=== PATIENT | male | born 1945 | race Caucasian/White ===

== ENCOUNTER 2020-07-26 06:20 | Outpatient (REF) | payer MEDICARE, SELFPAY ==
[2020-07-26 11:10] LABS: MANUAL DIFF FLAG NO
[2020-07-26 11:19] LABS: Basophils Absolute Auto 0.1 X10*3/uL (0.0-0.2); Basophils Percent Auto 0.8 % (0-2); Eosinophils Absolute Auto 0.4 X10*3/uL (0.0-0.4); Eosinophils Percent Auto 5.3 % (0-4); Hematocrit 44.5 % (42-52); Hemoglobin 14.5 g/dl (14.0-18.0); Imm Gran Abs Auto 0.02 X10*3/uL (0.00-0.03); Imm Gran Pct Auto 0.3 % (0.0-0.4); Lymphocytes Absolute Auto 2.2 X10*3/uL (1.2-4.9); Lymphocytes Percent Auto 28.6 % (20-40); Mean Corpuscular HGB Conc 32.6 g/dl (31.0-36.0); Mean Corpuscular Hemoglobin 30.6 pg (27.0-33.0); Mean Corpuscular Volume 93.9 fL (80-98); Mean Platelet Volume 10.7 fL (9.4-12.4); Monocytes Absolute Auto 0.7 X10*3/uL (0.1-1.2); Monocytes Percent Auto 8.6 % (2-11); Neutrophils Absolute Auto 4.3 X10*3/uL (2.0-8.3); Neutrophils Percent Auto 56.4 % (45-73); Platelet Count 292 X10*3/uL (160-400); Red Blood Count 4.74 X10*6/uL (4.60-5.80); White Blood Count 7.5 X10*3/uL (4.8-10.8)
[2020-07-26 12:11] LABS: Alanine Aminotransferase 27 U/L (0-40); Albumin Level 4.4 g/dL (3.5-5.0); Alkaline Phosphatase 55 U/L (39-117); Anion Gap 15 (12-20); Aspartate Amino Transferase 17 U/L (5-37); Bilirubin Total 0.8 mg/dL (0.0-1.0); Blood Urea Nitrogen 17 mg/dL (9-16); Calcium 9.3 mg/dL (8.4-10.2); Carbon Dioxide 26 mmol/L (22-29); Chloride 104 mmol/L (96-108); Cholesterol 165 mg/dL; Estimated Glomerular Filt Rate > 60; Glucose Fasting 138 mg/dL (60-99); HDL Cholesterol 41 mg/dL; LDL Cholesterol Calculated 105 mg/dl; Potassium 5.1 mmol/L (3.3-5.1); Sodium 140 mmol/L (135-145); Total Protein 7.3 g/dL (6.5-8.0); Triglycerides 99 mg/dL
[2020-07-26 12:50] LABS: Prostate Specific Antigen 0.21 ng/mL (<0.05-4.0)
== END 2020-07-26 06:21 | disposition home or self-care (01) ==
LOC: HO.HMGCLDS 06:20
PROVIDERS: PCP Internal Medicine; Visit Provider Internal Medicine
DX: Z00.00 Encounter for general adult medical examination without abnormal findings (principal); R53.83 Other fatigue; E78.00 Pure hypercholesterolemia, unspecified; Z12.5 Encounter for screening for malignant neoplasm of prostate
CPT/HCPCS: 36415; 80053; 80061; 84153; 85025

== ENCOUNTER → 2020-09-12 14:44 | Outpatient (REF) | payer MEDICARE, SELFPAY ==
--- NOTE | 2020-09-12 15:00 | CA_ITS ---
Transthoracic Echocardiogram Patient (Last, First, Middle): JuanitaJustino chang Royce Gender: Male Date of : 1945 Age: 74 Procedure Date: 09/12/2020 Procedure Type: Transthoracic Echocardiogram Location: OP Height: 182.88 cm Weight: 124.74 kg BSA: 2.44 m2 Heart Rate: bpm BP: 144 / 82 mmHg Transplanter Orchid: ERNIE Referring MD: Justino Deal MD Symptoms: NEW [place]UR[place] OVER AORTA Study Quality: Fair ECG Rhythm: Sinus Conclusions: - The left ventricular systolic function is normal. The visually estimated ejection fraction is between 60-65%. - No obvious valvular pathology seen on this study. Findings Left Ventricle Normal left ventricular cavity size. There is mildly increased left ventricular wall thickness. The left ventricular systolic function is normal. The visually estimated ejection fraction is between 60-65%. There is no evidence of regional wall motion abnormalities. Evidence suggests grade I (mild) diastolic dysfunction. Right Ventricle Normal right ventricular cavity size and systolic function. Atria The left atrium is mildly dilated. The right atrium is normal in size. Aortic Valve There is a normal trileaflet aortic valve. There is mild calcification of the aortic valve. There is no aortic valve stenosis. There is trace (trivial) aortic valve regurgitation. Mitral Valve The mitral valve appears normal. There is trace mitral valve regurgitation. There is no mitral valve stenosis. Pulmonic Valve The pulmonic valve was not well visualized. Tricuspid Valve There is trace tricuspid valve regurgitation. The pulmonary artery systolic pressure is normal. Great Vessels The aortic annulus, sinuses of valsalva, and asc aorta are normal in size. Venous The inferior vena cava is normal in size and collapses greater than 50% with inspiration. Pericardium/Pleural There is no evidence of pericardial effusion. Prior Study Comparison No significant change compared to prior study dated: 05/23/2004. Recommendations, Care & Conclusions No obvious valvular pathology seen on this study. Measurements 2D Linear Measurements IVSd: 1.17 0.6-0.9/0.6-1.0 cm LVIDd: 4.63 3.9-5.3/4.2-5.9 cm LVIDd Index: 1.90 2.4-3.2/2.2-3.1 cm/m2 LVIDs: 3.30 2.0-3.6 cm LVPWd: 1.15 0.7-1.1 cm Ao Root: 3.60 2.1-3.5 cm LA Diam: 3.70 2.7-3.8/3.0-4.0 cm LAIDs Index: 1.52 1.5-2.3 cm/m2 LV Mass: 245.91 67-162/88-224 g LV Mass Index: 100.78 43-95/49-115 g/m2 LVOT Diam: 2.10 3.0+(-)1.3 cm 2D Systolic Function EF 4C: 62.70 >55% EF 2C: 48.60 >55% EF BiP: 57.50 >55% Mitral Valve MV Pk E: 0.92 MV PK A: 0.98 MV Decel Time: 264.00 E/A: 0.90 E'Lateral: 6.67 E'Medial: 6.00 E/E' Med: 15.40 E/E' Lat: 13.80 PHT: 77.00 MVA PHT: 2.86 Decel Storey: 3.49 Aortic Valve AoV Pk Jamie: 2.02 AoV Mn Jamie: 1.39 AoV VTI: 0.46 AoV Pk Grad: 16.00 Aov Mn Grad: 9.00 MEG Cont.VTI: 2.07 LVOT LVOT Pk Jamie: 1.15 LVOT Mn Jamie: 0.85 LVOT VTI: 0.27 LVOT Pk Grad: 5.00 LVOT Mn Grad: 3.00 LVOT Diam: 2.10 LVOT Area: 3.46 Diastolic Function MV Pk E: 0.92 MV Pk A: 0.98 E/A: 0.90 E'Medial: 6.00 E/E' Med: 15.40 E' Laterial: 6.67 E/E' Lat: 13.80 Tricuspid Valve TR Pk Jamie: 1.24 TR Pk Grad: 6.00 Great Vessels Aorta Ao Root-2D: 3.60 2.0-3.7 cm Ao Asc: 3.70 2.1-3.4 cm Ao Arch: 3.10 Updated in Other Vendor System with Status of Final Ted Westfall MD electronically signed on 09/14/2020 11:54:34 AM with status of Final
== END ==
LOC: HO.CARD 14:44
PROVIDERS: PCP Internal Medicine; Visit Provider Internal Medicine
DX: I35.8 Other nonrheumatic aortic valve disorders (principal)
CPT/HCPCS: 93306

== ENCOUNTER 2021-08-13 15:17 | Outpatient (REF) | payer MEDICARE, SELFPAY ==
--- NOTE | ~2021-08-13 | XR_ITS ---
EXAMINATION: XR CHEST CLINICAL INFORMATION: Cough. Rule out pneumonia. COMPARISON: Previous chest x-ray August 2019 TECHNIQUE: 2 views of the chest were obtained. FINDINGS: The cardiac and mediastinal contours are stable. The lungs are clear. There is no pleural effusion or pneumothorax. There are degenerative changes of the spine. XR/XR chest 2V IMPRESSION: No evidence for acute disease in the chest.
== END 2021-08-13 15:18 | disposition home or self-care (01) ==
LOC: HO.HMGCX 15:17
PROVIDERS: PCP Internal Medicine; Visit Provider Internal Medicine
DX: R05.9 Cough, unspecified (principal)
CPT/HCPCS: 71046

== ENCOUNTER 2021-09-02 14:52 | Outpatient (REF) | payer MEDICARE, SELFPAY ==
--- NOTE | 2021-09-02 16:22 | MHC.AU.ANR ---
Adult Audiological Evaluation Date of Visit: 09/02/21 Reason for Appointment: Justino was seen for a hearing evaluation due to concerns of gradually decreasing hearing abilities. He reports receiving a hearing test in 1990, which revealed a possible hearing loss on the left side. Justino reports recently asking for more repetitions and needing the volume up louder than his spouse would like. Justino purchased an over the counter amplifier for his left ear about a year ago. He states the amplifier helps, but also has feedback when he turns his head and if he increases the volume. 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 Justino reports having to use a telephone at full volume on the left side while working around machines at the printing facility. Does patient feel they have a hearing loss?: Yes If Yes, Which Ear?: Left Ear When Was Hearing Difficulty First Noticed?: 1990 Has hearing been tested previously?: Yes Previous Hearing Test Results: Evaluation at work- 1990- diminished hearing thresholds in the left ear Hearing Handicap Inventory: HHIE SCORE: 22 Based on HHIE score, patient has: Mild to moderate perceived hearing handicap Ear History: Family History of Hearing Loss?: Yes: Brother from service History of occupational noise exposure?: Yes: Printing machines for 5 years History: Yes: [employer]-4 years Medical History: Medical History: High Blood Pressure, Hernia-2010 Allergies: NKA Medication List: Atorvastatin, metoprolol Otoscopy: Right Ear: Unremarkable Left Ear: Unremarkable Tympanometry: Tympanometry performed due to: To assess integrity of the middle ear system Right Ear: Normal Middle Ear System (Type A) Left Ear: Normal Middle Ear System (Type A) Hearing Evaluation: Transducer(s) Used: Insert Earphones, Bone Conduction Method: Conventional Audiometry Stimuli Used: Pure Tones Right Ear: Description of Hearing: Normal hearing thresholds from 250-500 Hz, sloping to a mild sensorineural hearing loss through 8000 Hz. Left Ear: Description of Hearing: Normal hearing threshold at 250 Hz, sloping to a severe sensorineural hearing loss through 4000 Hz, rising to a moderately severe hearing loss through 8000 Hz. A 20-40 dB asymmetry is noted from 500-8000 Hz, left ear worse. Speech Recognition Threshold (SRT): Method Used: Monitored Live Voice Stimuli Used: Spondee Words Right Ear: 30 dB HL Left Ear: 50 dB HL Word Discrimination: Method: Recorded Lists Word Lists Used: NU-6 Right Ear: 100% at 75 dB HL Left Ear: 88% at 90 dB HL Interpretation of Results: Asymmetrical sensorineural hearing loss, left ear worse. Normal middle-ear mobility bilaterally. Recommendations: Recommended Justino to follow up with ENT due to the asymmetrical nature of his hearing loss. Based on the degree and patient complaints, Justino would be a candidate for a hearing aid use, pending medical clearance. Counseled on calling his insurance to determine if he has any hearing aid coverage. He was welcomed to return to further discuss hearing aids if he choses to pursue hearing aids through our clinic. Justino should return in one year to monitor the status of his hearing loss. Diagnosis: Primary Diagnosis: H90.3 Bilateral Sensorineural Hearing Loss Services Performed: Services Performed: Comprehensive Audiological Evaluation (CPT 13024) Tympanometry (CPT 93410) Signature: Student/Clinical Fellow: Yes: Joann Shore B.A., Ronnie Senior Specialist I have reviewed/agreed with student/fellow documentation: Yes Provider: Ronnie Jones, [facility]
== END 2021-09-02 14:53 | disposition home or self-care (01) ==
LOC: HO.SH 14:52
PROVIDERS: Visit Provider Internal Medicine
DX: Z01.118 Encounter for examination of ears and hearing with other abnormal findings (principal); H90.3 Sensorineural hearing loss, bilateral
CPT/HCPCS: 92557; 92567

== ENCOUNTER 2021-11-11 06:01 | Outpatient (REF) | payer MEDICARE, SELFPAY ==
[2021-11-11 11:50] LABS: Cholesterol 143 mg/dL; HDL Cholesterol 33 mg/dL; LDL Cholesterol Calculated 87 mg/dl; Triglycerides 115 mg/dL
== END 2021-11-11 06:02 | disposition home or self-care (01) ==
LOC: HO.HMGCLDS 06:01
PROVIDERS: PCP Internal Medicine; Visit Provider Internal Medicine
DX: R53.83 Other fatigue (principal); E78.5 Hyperlipidemia, unspecified
CPT/HCPCS: 36415; 80061

== ENCOUNTER 2022-06-05 09:51 | Outpatient (REF) | payer MEDICARE, SELFPAY ==
--- NOTE | ~2022-06-05 | XR_ITS ---
EXAMINATION: XR SHOULDER, RIGHT CLINICAL INFORMATION: Pain. COMPARISON: None TECHNIQUE: AP external rotation, Grashey, scapular Y, and axillary views of the right shoulder. FINDINGS: Bony alignment and mineralization are normal. The glenohumeral joint is intact and shows mild peripheral osteophyte formation. The acromioclavicular and coracoclavicular intervals are normal. 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 There is dense calcific tendinitis of the right rotator cuff insertion. No foreign body is seen. There is no right pneumothorax. XR/XR shoulder RT min 2V IMPRESSION: 1. 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 2. There is dense calcific tendinitis of the right rotator cuff insertion.
== END 2022-06-05 09:52 | disposition home or self-care (01) ==
LOC: HO.HMGCX 09:51
PROVIDERS: PCP Internal Medicine; Visit Provider Internal Medicine
DX: M25.511 Pain in right shoulder (principal)
CPT/HCPCS: 73030

== ENCOUNTER 2022-08-29 07:21 | Outpatient (REF) | payer MEDICARE, SELFPAY ==
[2022-08-29 11:05] LABS: MANUAL DIFF FLAG NO
[2022-08-29 11:12] LABS: Basophils Percent Auto 0.6 % (0-2); Eosinophils Absolute Auto 0.2 X10*3/uL (0.0-0.4); Eosinophils Percent Auto 3.3 % (0-4); Hematocrit 41.2 % (42.0-52.0); Hemoglobin 13.7 g/dl (14.0-18.0); Imm Gran Abs Auto 0.03 X10*3/uL (0.00-0.03); Imm Gran Pct Auto 0.4 % (0.0-0.4); Lymphocytes Absolute Auto 2.6 X10*3/uL (1.2-4.9); Lymphocytes Percent Auto 35.7 % (20-40); Mean Corpuscular HGB Conc 33.3 g/dl (31.0-36.0); Mean Corpuscular Hemoglobin 31.2 pg (27.0-33.0); Mean Corpuscular Volume 93.8 fL (80.0-98.0); Mean Platelet Volume 10.7 fL (9.4-12.4); Monocytes Absolute Auto 0.6 X10*3/uL (0.1-1.2); Monocytes Percent Auto 8.3 % (2-11); Neutrophils Absolute Auto 3.8 x10*3/uL (2.0-8.3); Neutrophils Percent Auto 51.7 % (45-73); Platelet Count 298 X10*3/uL (160-400); Red Blood Count 4.39 X10*6/uL (4.60-5.80); Red Cell Distribution Width 12.8 % (11.0-16.0); White Blood Count 7.3 X10*3/uL (4.8-10.8)
[2022-08-29 11:36] LABS: Alanine Aminotransferase 27 U/L (0-40); Albumin Level 4.1 g/dL (3.5-5.0); Alkaline Phosphatase 55 U/L (39-117); Anion Gap 13 (12-20); Aspartate Amino Transferase 18 U/L (5-37); Bilirubin Direct 0.3 mg/dL (0.0-0.5); Bilirubin Total 0.9 mg/dL (0.0-1.0); Blood Urea Nitrogen 14 mg/dL (9-16); Carbon Dioxide 27 mmol/L (22-29); Chloride 104 mmol/L (96-108); Cholesterol 135 mg/dL; Estimated Average Glucose 126 mg/dL; Estimated Glomerular Filt Rate 54; Glucose Fasting 134 mg/dL (60-99); HDL Cholesterol 35 mg/dL; LDL Cholesterol Calculated 83 mg/dl; Potassium 4.7 mmol/L (3.3-5.1); Sodium 139 mmol/L (135-145); Total Protein 6.5 g/dL (6.5-8.0); Triglycerides 88 mg/dL
== END 2022-08-29 07:22 | disposition home or self-care (01) ==
LOC: HO.HMGCLDS 07:21
PROVIDERS: PCP Internal Medicine; Visit Provider Internal Medicine
DX: Z00.00 Encounter for general adult medical examination without abnormal findings (principal); R53.83 Other fatigue; E11.9 Type 2 diabetes mellitus without complications; Z12.5 Encounter for screening for malignant neoplasm of prostate
CPT/HCPCS: 36415; 80051; 80061; 80076; 82565; 82947; 83036; 84153; 84520; 85025

== ENCOUNTER → 2022-09-22 12:32 | Outpatient (REF) | payer MEDICARE, SELFPAY ==
--- NOTE | 2022-09-22 12:36 | CA_ITS ---
Transthoracic Echocardiogram Patient (Last, First, Middle): Justino Grant Royce Gender: Male Date of : 1945 Age: 76 Procedure Date: 09/22/2022 Procedure Type: Transthoracic Echocardiogram Location: OP Height: 182.88 cm Weight: 129.28 kg BSA: 2.48 m2 Heart Rate: 60 bpm BP: 160 / 80 mmHg Glazier Helper: SB Referring MD: Justino Deal MD Symptoms: New aortic murmur Study Quality: Adequate w contrast ECG Rhythm: Sinus Conclusions: - The left ventricular systolic function is normal. The calculated ejection fraction is 64% by biplane method. - Evidence suggests grade II (moderate) diastolic dysfunction. - Aortic valve sclerosis but no significant stenosis. Findings Procedure Information Contrast agent, definity, is being given per protocol without apparent complications. Left Ventricle Normal left ventricular cavity size. There is mildly increased left ventricular wall thickness. The left ventricular systolic function is normal. The calculated ejection fraction is 64% by biplane method. There is no evidence of regional wall motion abnormalities. E/E prime ratio is >15, consistent with elevated filling pressures. Evidence suggests grade II (moderate) diastolic dysfunction. Right Ventricle Normal right ventricular cavity size and systolic function. Atria Both atria are normal in size. Aortic Valve There is a normal trileaflet aortic valve. There is mild calcification of the aortic valve. The mean gradient is 13 mmHg. The aortic valve area is 2.18 cm2. There is mild aortic valve regurgitation. No significant aortic stenosis. Mitral Valve The mitral valve appears normal. There is no mitral valve regurgitation. There is no mitral valve stenosis. Pulmonic Valve The pulmonic valve is likely normal. Tricuspid Valve There is trace tricuspid valve regurgitation. Tricuspid regurgitation envelope is inadequate for calculation of right ventricular systolic pressure. Great Vessels The asc aorta is normal in size. Venous The inferior vena cava is normal in size and collapses greater than 50% with inspiration. Pericardium/Pleural There is no evidence of pericardial effusion. Prior Study Comparison Changes noted compared to prior study dated: 09/12/2020. Progression of diastolic dysfunction. Measurements 2D Linear Measurements IVSd: 1.05 0.6-0.9/0.6-1.0 cm LVIDd: 5.90 3.9-5.3/4.2-5.9 cm LVIDd Index: 2.38 2.4-3.2/2.2-3.1 cm/m2 LVIDs: 3.27 2.0-3.6 cm LVPWd: 1.24 0.7-1.1 cm LA Diam: 4.00 2.7-3.8/3.0-4.0 cm LAIDs Index: 1.61 1.5-2.3 cm/m2 LV Mass: 357.73 67-162/88-224 g LV Mass Index: 144.25 43-95/49-115 g/m2 LVOT Diam: 2.30 3.0+(-)1.3 cm 2D Systolic Function EF 4C: 56.40 >55% EF 2C: 71.80 >55% EF BiP: 64.30 >55% Mitral Valve MV Pk E: 1.19 MV PK A: 0.99 MV Decel Time: 206.00 E/A: 1.20 E'Lateral: 5.11 E'Medial: 4.35 E/E' Med: 27.40 E/E' Lat: 23.30 PHT: 60.00 MVA PHT: 3.67 Decel Lehigh: 5.77 Aortic Valve AoV Pk Jamie: 2.39 AoV Mn Jamie: 1.68 AoV VTI: 0.51 AoV Pk Grad: 23.00 Aov Mn Grad: 13.00 MEG Cont.VTI: 2.18 LVOT LVOT Pk Jamie: 1.08 LVOT Mn Jamie: 0.75 LVOT VTI: 0.26 LVOT Pk Grad: 5.00 LVOT Mn Grad: 3.00 LVOT Diam: 2.30 LVOT Area: 4.15 Diastolic Function MV Pk E: 1.19 MV Pk A: 0.99 E/A: 1.20 E'Medial: 4.35 E/E' Med: 27.40 E' Laterial: 5.11 E/E' Lat: 23.30 Right Ventricle TAPSE (mm): 31.00 TVS' Jamie: 15.70 Tricuspid Valve RA Press: 3.00 Great Vessels Aorta Sinus of Valsalva: 3.30 2.0-3.5 cm Ao Asc: 3.90 2.1-3.4 cm Pulmonary Valve PV Pk Jamie: 0.93 Peak PV Grad: 3.00 Updated in Other Vendor System with Status of Final Ted Westfall MD electronically signed on 09/23/2022 11:21:12 AM with status of Final
== END ==
LOC: HO.CARD 12:32
PROVIDERS: PCP Internal Medicine; Visit Provider Internal Medicine
DX: R01.1 Cardiac murmur, unspecified (principal)
CPT/HCPCS: 93306; Q9957

== ENCOUNTER 2023-10-21 06:02 | Outpatient (REF) | payer MEDICARE, SELFPAY ==
[2023-10-21 10:09] LABS: MANUAL DIFF FLAG NO
[2023-10-21 10:19] LABS: Basophils Percent Auto 0.5 % (0-2); Eosinophils Absolute Auto 0.2 X10*3/uL (0.0-0.4); Hematocrit 42.5 % (42.0-52.0); Imm Gran Abs Auto 0.03 X10*3/uL (0.00-0.03); Imm Gran Pct Auto 0.4 % (0.0-0.4); Lymphocytes Absolute Auto 2.6 X10*3/uL (1.2-4.9); Lymphocytes Percent Auto 33.5 % (20-40); Mean Corpuscular HGB Conc 32.9 g/dl (31.0-36.0); Mean Platelet Volume 10.5 fL (9.4-12.4); Monocytes Absolute Auto 0.7 X10*3/uL (0.1-1.2); Monocytes Percent Auto 9.2 % (2-11); Neutrophils Absolute Auto 4.1 x10*3/uL (2.0-8.3); Neutrophils Percent Auto 53.4 % (45-73); Platelet Count 309 X10*3/uL (160-400); Red Blood Count 4.52 X10*6/uL (4.60-5.80); Red Cell Distribution Width 13.2 % (11.0-16.0); White Blood Count 7.7 X10*3/uL (4.8-10.8)
[2023-10-21 10:46] LABS: Alanine Aminotransferase 24 U/L (0-40); Albumin Level 4.1 g/dL (3.5-5.0); Alkaline Phosphatase 55 U/L (39-117); Anion Gap 13 (12-20); Aspartate Amino Transferase 19 U/L (5-37); Bilirubin Total 0.7 mg/dL (0.0-1.0); Blood Urea Nitrogen 16 mg/dL (9-16); Calcium 9.1 mg/dL (8.4-10.2); Carbon Dioxide 26 mmol/L (22-29); Chloride 106 mmol/L (96-108); Cholesterol 133 mg/dL (<200); Estimated Glomerular Filt Rate 58; Glucose Fasting 126 mg/dL (60-99); HDL Cholesterol 35 mg/dL (>40); LDL Cholesterol Calculated 78 mg/dL (<100); Potassium 4.4 mmol/L (3.3-5.1); Sodium 141 mmol/L (135-145); Total Protein 6.9 g/dL (6.5-8.0); Triglycerides 102 mg/dL (<150)
[2023-10-21 10:59] LABS: Prostate Specific Antigen 0.22 ng/mL (<0.05-4.0)
[2023-10-21 11:05] LABS: Estimated Average Glucose 128 mg/dL; Hemoglobin A1c % 6.1 % (<6.0)
== END 2023-10-21 06:03 | disposition home or self-care (01) ==
LOC: HO.HMGCLDS 06:02
PROVIDERS: PCP Internal Medicine; Visit Provider Internal Medicine
DX: R53.83 Other fatigue (principal); Z12.5 Encounter for screening for malignant neoplasm of prostate; E78.5 Hyperlipidemia, unspecified
CPT/HCPCS: 36415; 80053; 80061; 83036; 84153; 85025

== ENCOUNTER 2023-10-26 13:56 | Outpatient (REF) | payer MEDICARE, SELFPAY ==
--- NOTE | ~2023-10-26 | XR_ITS ---
EXAMINATION: XR KNEE, RIGHT CLINICAL INFORMATION: Pain. COMPARISON: None available. TECHNIQUE: 5 views including AP, lateral and 3 oblique views of the right knee. FINDINGS: Trace joint effusion. A few calcifications in the soft tissues posterior to the knee, possibly atherosclerotic. Mild narrowing of the medial compartment with minimal marginal osteophytes in the tricompartments. XR/XR knee RT 4V IMPRESSION: Mild degenerative changes.
== END 2023-10-26 13:57 | disposition home or self-care (01) ==
LOC: HO.HMGCX 13:56
PROVIDERS: PCP Internal Medicine; Visit Provider Internal Medicine
DX: M25.561 Pain in right knee (principal)
CPT/HCPCS: 73564

== ENCOUNTER 2024-06-05 09:21 | Day surgery (SDC) | payer MEDICARE, SELFPAY ==
--- OUTSIDE RECORDS SUMMARY | 2024-05-30 13:53 | XMS_ITS ---
Author Organization [facility] Address [address] [place] [address] Care Team Providers Care Fleet Salesperson Name Role Phone Justino Deal MD Primary Care Provider Unavailab Alejandro Dominguez Unavailable [phone] REASON FOR VISIT ? do colonoscopy Encounters Encounter Location Date Provider Diagnosis [facility] [address] [place] [phone] 10/28/2023 Alejandro Glass PLAN OF TREATMENT Next Appt Details Provider Name:Alejandro Galss , 06/05/2024 10:50:00 AM, [address] [facility] , [place], [place], [phone],
--- OUTSIDE RECORDS SUMMARY | 2024-05-30 13:54 | XMS_ITS | Patient Health Record ---
Author Organization [facility] Address [address] [place] [phone] Care Team Providers Care Medical Transcriber Name Role Phone Justino Deal MD Primary Care Provider Alejandro Melendez Unavailable [phone] ALLERGIES Allergen (clinical drug ingredient) Drug/Non Drug Allergy documented on EMR Reaction Allergy Type Onset Date Status ibuprofen Ibuprofen swollen face/possible seizure Drug Allergy Active aspirin Aspirin Unknown Drug Allergy Active REASON FOR REFERRAL No Information MEDICATIONS Medication SIG (Take, Route, Frequency, Duration) Notes Start Date End Date Status Metoprolol Succinate ER 50 MG 1 tablet Orally Once a day Active Atorvastatin Calcium 40 MG 1 tablet Oral ly Once a day Active SOCIAL HISTORY Tobacco Use: Social History Observation Description Date Details (start date - stop date) Former Smoker NA - NA Sex Assigned At : Social History Observation Description Sex Assigned At Unknown Tobacco Use/Smoking Question Answer Notes Patient is a former smoker How long has it been since you last smoked? > 10 years Alcohol Screen Question Answer Notes Did you have a drink contain ing alcohol in the past year? Yes How often did you have a dri nk containing alcohol in the past year? 2 to 3 times a week (3 points) How many drinks did you have on a typical day when you were drinking in the past year? 3 or 4 drinks (1 point) Points 4 Interpretation Positive PROBLEMS Problem Type ICD Code Onset Dates Problem Status W/U Status Risk SNOMED Code Notes Problem Encounter for screening for malignant neoplasm of colon (Z12.11) Active confirmed 659211950 Problem Preprocedural examination (Z01.818) Active confirmed 890604178 Problem History of adenomatous polyp of colon (Z86.010) Active confirmed History of adenomatous polyp of colon (278224518) Problem Family history of colon cancer (Z80.0) Active confirmed Family History of Cancer of Colon (Situation) (758105024) VITAL SIGNS Blood pressure diastolic 00 mm Hg 02/11/2024 Height 72 in 02/11/2024 Blood pressure systolic 0 mm Hg 02/11/2024 Weight 288 lbs 02/11/2024 BMI 39.06 kg/m2 02/11/2024 Encounters Encounter Location Date Provider Diagnosis [facility] [address] [place] [phone] 02/11/2024 Alejandro Glass Preprocedural examination Z01.818 ; Encounter for screening for malignant neoplasm of colon Z12.11 ; History of adenomatous polyp of colon Z86.010 and Family history of colon cancer Z80.0 [facility] [address] [place] [phone] 10/28/2023 Alejandro Glass ASSESSMENTS Encounter Date Diagnosis Assessment Notes Treatment Notes Treatment Clinical Notes 02/11/2024 Encounter for screening for malignant neoplasm of colon (ICD-10 - Z12.11) 02/11/2024 Preprocedural examination (ICD-10 - Z01.818) 02/11/2024 History of adenomatous polyp of colon (ICD-10 - Z86.010) 02/11/2024 Family history of colon cancer (ICD-10 - Z80.0) PLAN OF TREATMENT Future Test Test Name Order Date COLONOSCOPY 10/15/2016 COLONOSCOPY 02/11/2024 Next Appt Details Provider Name:Alejandro Glass , 06/05/2024 10:50:00 AM, [address] [facility] , [place], [place], [phone], Insurance Providers Payer Name Payer Address Payer Phone Subscriber Number Group Number Insured Name Patient Relationship to Insured Coverage Start Date Coverage End Date [facility] [address] [place] [address] [phone] [id number] JUSTINO CELIS Self - patient is the insured MEDICAL (GENERAL) HISTORY Medical History History ICD Code Hypertension Elevated Cholesterol Denies IA,DM,CVA,Lung disease,renal dise ase Told of probable sleep apnea Negative screening colonoscopy in October of [address] Camarillo Arthritis knee shoulder Colonoscopy in 12/2016 with tubular adeno mas removed Surgical History Surgery Date(Month/Year) Umbilical hernia with mesh Dr Donis 2009 Hernia repair---mesh was removed Dr. Wes braswell Lasik both eyes, and cataracts 04/2015
[2024-06-01 14:21] VITALS: BMI 39.1
--- OUTSIDE RECORDS SUMMARY | 2024-06-05 09:24 | XMS_ITS ---
Author Organization [facility] Address [address] [place] [phone] Care Team Providers Care Industrial Accountant Name Role Phone Justino Deal MD Primary Care Provider Alejandro Melendez Unavailable [phone] ALLERGIES Allergen (clinical drug ingredient) Drug/Non Drug Allergy documented on EMR Reaction Allergy Type Onset Date Status ibuprofen Ibuprofen swollen face/possible seizure Drug Allergy Active aspirin Aspirin Unknown Drug Allergy Active REASON FOR VISIT Patient presents today for a recall colonoscopy MEDICATIONS Medication SIG (Take, Route, Frequency, Duration) [...] W/U Status Risk SNOMED Code Notes Problem History of adenomatous polyp of colon (Z86.010) Active confirmed History of adenomatous polyp of colon (408742269) Problem Family history of colon cancer (Z80.0) Active confirmed Family History of Cancer of Colon (Situation) (851850945) VITAL SIGNS BMI 39.06 kg/m2 02/11/2024 Blood pressure systolic 0 mm Hg 02/11/20 24 Blood pressure diastolic 00 mm Hg 024 Height 72 in 02/11/2024 Weight 288 lbs 02/11/2024 Encounters Encounter Location Date Provider Diagnosis [facility] [address] [place] [address] 02/11/2024 Alejandro Glass Preprocedural examination Z01.818 ; Encounter for screening for malignant neoplasm of colon Z12.11 ; History of adenomatous polyp of colon Z86.010 and Family history of colon cancer Z80.0 ASSESSMENTS Encounter Date Diagnosis Assessment Notes Treatment Notes Treatment Clinical Notes 02/11/2024 Preprocedural examination (ICD-10 - Z01.818) 02/11/2024 Encounter for screening for malignant neoplasm of colon (ICD-10 - Z12.11) 02/11/2024 History of adenomatous polyp of colon (ICD-10 - Z86.010) 02/11/2024 Family history of colon cancer (ICD-10 - Z80.0) PLAN OF TREATMENT Future Test Test Name Order Date COLONOSCOPY 02/11/2024 Next Appt Details Follow Up: prn, Reason: Provider Name:Alejandro Glass , 06/05/2024 10:50:00 AM, [address] [place] [address] , [place], [place], [phone], Progress Notes * Examination Category Sub-Category Detail Notes General Examination GENERAL APPEARANCE: pleasant , well nourished, well developed, in no acute distress EYES: sclera non-icteric NECK/THYROID: no cervical lymphade nopathy, neck supple HEART: S1, S2 normal LUNGS: clear to auscultatio n bilaterally ABDOMEN: normal bowel sounds, no guarding or rigidity, no guarding or rigidity, no masses palpable, soft, nontender, nondistended NEUROLOGIC: alert and oriented SKIN: nonjaundiced, no spi scarlett angiomata ORAL CAVITY: mucosa moist
--- OUTSIDE RECORDS SUMMARY | 2024-06-05 09:24 | XMS_ITS ---
Author Organization [facility] Address [address] [place] [address] Care Team Providers Care Civil Service Worker Name Role Phone Justino Deal MD Primary Care Provider Unavailab Alejandro Dominguez Unavailable [phone] REASON FOR VISIT colon screening Encounters Encounter Location Date Provider Diagnosis [facility] [place] [address] [place] [phone] 06/05/2024 Alejandro Glass PLAN OF TREATMENT Next Appt Details Provider Name:Alejandro Glass , 06/05/2024 10:50:00 AM, [address] [place] [address], [phone],
--- OUTSIDE RECORDS SUMMARY | 2024-06-05 09:24 | XMS_ITS | Patient Health Record ---
Author Organization [facility] Address [address] [place] [id number] Care Team Providers Care Relay Motorman Name Role Phone Justino Deal MD Primary Care Provider Alejandro Melendez Unavailable [phone] ALLERGIES Allergen (clinical drug ingredient) Drug/Non Drug [...] malignant neoplasm of colon (Z12.11) Active confirmed 800798409 Problem Preprocedural examination (Z01.818) Active confirmed [id number] Problem History of adenomatous polyp of colon (Z86.010) Active confirmed History of adenomatous polyp of colon (664742378) Problem Family history of colon cancer (Z80.0) Active confirmed Family History of Cancer of Colon (Situation) (501205395) VITAL SIGNS Blood pressure diastolic 00 mm Hg 02/11/2024 Height 72 in 02/11/2024 Blood pressure systolic 0 mm Hg 02/11/2024 Weight 288 lbs 02/11/2024 BMI 39.06 kg/m2 02/11/2024 Encounters Encounter Location Date Provider Diagnosis [facility] Outpatient [address] [place] [id number] 06/05/2024 Alejandro Glass [facility] [address] [place] [id number] 02/11/2024 Alejandro Glass Preprocedural examination Z01.818 ; Encounter for screening for malignant neoplasm of colon Z12.11 ; History of adenomatous polyp of colon Z86.010 and Family history of colon cancer Z80.0 [facility] [address] [facility] [address] [place] [phone] 10/28/2023 Alejandro Glass ASSESSMENTS Encounter Date Diagnosis [...] Name:Alejandro Glass , 06/05/2024 10:50:00 AM, [address] [facility] , [place], [place], [phone], Insurance Providers Payer Name Payer Address Payer Phone Subscriber Number Group Number Insured Name Patient Relationship to Insured Coverage Start Date Coverage End Date [facility] [address] [place] [phone] [id number] JUSTINO CELIS Self - patient is the insured MEDICAL (GENERAL) HISTORY Medical History History ICD Code Hypertension Elevated Cholesterol Denies DE,DM,CVA,Lung disease,renal dise ase Told of probable sleep apnea Negative screening colonoscopy in October of [address] Camarillo Arthritis knee shoulder Colonoscopy in 12/2016 with tubular adeno mas removed Surgical History Surgery Date(Month/Year) Umbilical hernia with mesh Dr Donis 2009 Hernia repair---mesh was removed Dr. Wes braswell Lasik both eyes, and cataracts 04/2015
--- OUTSIDE RECORDS SUMMARY | 2024-06-05 09:24 | XMS_ITS ---
Author Organization [facility] Address [address] [place] [address] Care Team Providers Care Life Skills Coordinator Volunteer Name Role Phone Justino Deal MD Primary Care Provider Unavailab Alejandro Dominguez Unavailable [phone] REASON FOR VISIT ? do colonoscopy Encounters Encounter Location Date Provider Diagnosis [facility] [address] [place] [phone] 10/28/2023 Alejandro Glass PLAN OF TREATMENT Next Appt Details Provider Name:Alejandro Glass , 06/05/2024 10:50:00 AM, [address] [facility] , [place], [place], [phone],
[2024-06-05 09:38] VITALS: BMI 40.2
[2024-06-05 09:52] VITALS: BP 164/88; PULSE 95; RESP 16; TEMP 36.7; O2SAT 96
[2024-06-05] MEDS: Lactated Ringers 1,000 ML 80 ML IVCONT (10:06)
--- NOTE | 2024-06-05 10:51 | HO.ANESPROP2 ---
[facility] Past Medical History Medical History Murmur Sleep apnea Arthritis Elevated cholesterol HTN (hypertension) Surgical History Surgical History Hx of cataract extraction Hx of LASIK Hx of umbilical hernia repair H/O colonoscopy History of Problems with Anesthesia: No Social History Social History Patient Tobacco Use Status: Former Tobacco user Use of substances other than those prescribed or required for medical reasons: No Are you DNR?: No Advance Directives: No Advance Directives Information Provided: Yes Advance Directives on File: No Recently lost weight without trying: No Nutrition Risks: No Nutritional Risk Meds Allergies Allergy/AdvReac Type Severity Reaction Status Date / Time aspirin Allergy Severe Angioedema Verified 06/05/24 09:36 ibuprofen Allergy Severe Angioedema Verified 06/05/24 09:36 Active Medications: Current Medications Lactated Ringer's (Lr) 1,000 mls @ 80 mls/hr IVCONT .[id number] CAROL Last Admin: 06/05/24 10:06 Dose: 80 mls/hr Sodium Biphosphate/Sodium Phosphate (Sodium Phosphate,Mccurtain-Dibasic 133 Ml Enema) 133 ml WA ONCE PRN PRN Reason: Poor Colonoscopy Prep Results Home Medications ?Medication ?Instructions ?Recorded ?Confirmed ?Last Taken ?Type atorvastatin 40 mg tablet 40 mg PO DAILY 06/01/24 06/01/24 Unknown History metoprolol succinate 50 mg 50 mg PO DAILY 06/01/24 06/01/24 06/05/24 History tablet,extended release 24 hr Exam Height,Weight and Vital Signs: Height 5 ft 11 in Weight 130.748 kg Last Vital Signs Temp 98.1 F 06/05/24 09:52 Pulse 95 06/05/24 09:52 Resp 16 06/05/24 09:52 BP 164/88 H 06/05/24 09:52 Pulse Ox 96 06/05/24 09:52 O2 Del Method Room Air 06/05/24 09:52 Airway Mallampati Class: III TM Dist: >3cm Neck ROM: Limited Loose/Missing/Broken Teeth: Yes and Upper Heart: RRR Lungs: CTA Assessment and Plan Assessment Anesthesia Assessment: Anesthesia Plan Discussed and Chart Reviewed Final Anesthetic Review History of Problems with Anesthesia: No NPO: Yes ASA Class: III Final Preanesthetic Review: Meds/Allgs Chart Reviewed, Consent Obtained/Reviewed and Anes Risks/Benef Reviewed Patient Risk: Intermediate Procedure Risk: Low Anesthetic Plan Anesthetic Plan: MAC: Disposition: Standard PACU
[2024-06-05 12:15] VITALS: BP 126/71; PULSE 62; RESP 18; TEMP 36.3; O2SAT 98
--- NOTE | 2024-06-05 12:18 | PM.OP ---
Brief Operative Note Date of Service: 06/05/24 Pre-op diagnosis: Screening Post-op diagnosis: other (Colon polyps) Procedure: Colonoscopy to the cecum with cold snare polypectomy x 2 at 60cm, and bx/removal of polyps Surgeon: Alejandro Glass MD Anesthesia: MAC Was an Emergency Vehicle Operations Instructor used for this Procedure?: No Estimated blood loss (mL): 2.0 Pathology: other (A. Ascending colon polyps x 2 B. Polyps x 2 at 60cm) Condition: stable Disposition: PACU
[2024-06-05 12:30] VITALS: BP 118/58; PULSE 68; RESP 18; TEMP 36.8; O2SAT 98
--- NOTE | 2024-06-05 12:53 | OP_ITS ---
DATE OF SERVICE: 06/05/2024 SURGEON: Alejandro Glass MD INDICATIONS: The patient presents for evaluation of colorectal cancer screening, personal history of tubular adenoma of the colon, and family history of colon cancer. Full consent has been obtained from him for this, including risks of bleeding and perforation. PREOPERATIVE DIAGNOSIS: POSTOPERATIVE DIAGNOSIS: PROCEDURE PERFORMED: Colonoscopy to the cecum with biopsy and removal of polyps, and cold snare polypectomy x 2 at 60 cm. ESTIMATED BLOOD LOSS: COMPLICATIONS: ANESTHESIA: Monitored anesthesia care. ASSISTANTS: SPECIMENS: PREOPERATIVE DIAGNOSES: Colorectal cancer screening, personal history of tubular adenoma of the colon, family history of colon cancer. POSTOPERATIVE DIAGNOSES: Colorectal cancer screening, personal history of tubular adenoma of the colon, family history of colon cancer, colon polyps, diverticulosis, and internal hemorrhoids. DESCRIPTION OF PROCEDURE: The patient was placed in the left lateral decubitus position. The digital rectal exam revealed no abnormalities. The popchips video pediatric colonoscope was entered into the rectum and advanced to the cecum with the assistance of abdominal wall pressure. Once in the cecum, I did identify normal-appearing cecal pouch with appendiceal orifice and a normal-appearing ileocecal valve. The entire cecum and ileocecal valve appeared normal, including the appendiceal orifice. The scope was slowly withdrawn assessing all mucosal surfaces carefully. Preparation was excellent. In the ascending colon, were 2 less than 5 mm polyps, both of which were biopsied and completely removed with a cold biopsy forceps and placed in the same container. At 60 cm were 2 approximately 5 or 6 mm polyps. Both of these were removed by cold snare polypectomy and recovered by suction. They were placed in the same container. Both polypectomy sites appeared clean, without any sign of residual polyp nor significant bleeding. I did not visualize any other polyps, colitis, nor angiodysplasias. There was a mild amount of sigmoid diverticulosis. In the rectum, scope was retroflexed visualizing internal hemorrhoids, but no other pathology. The rectal mucosa appeared normal. Scope was straightened and withdrawn from the patient. He tolerated the procedure well and was returned to the recovery area in stable condition. IMPRESSION: 1. Colon polyps. 2. Diverticulosis. 3. Internal hemorrhoids. PLAN: The results of the pathology will be checked. Given these findings and his age, I do not think he would need any further screening colonoscopies in the future. He will otherwise see me on a p.r.n. basis. He was advised not to use any aspirin and NSAIDs for 1 week. This has been discussed with his . MD MARIANA Kim/BRONSON / [phone] MTDD
== END 2024-06-05 12:55 | disposition home or self-care (01) ==
PROVIDERS: PCP Internal Medicine; Visit Provider Internal Medicine
PROC: 0DJD8ZZ Inspection of Lower Intestinal Tract, Via Natural or Artificial Opening Endoscopic (ICD-10-PCS; CPT 45378; principal; 2024-06-05 10:40)
DX: Z12.11 Encounter for screening for malignant neoplasm of colon (principal); Z86.0101 Personal history of adenomatous and serrated colon polyps; Z80.0 Family history of malignant neoplasm of digestive organs; D12.2 Benign neoplasm of ascending colon; D12.4 Benign neoplasm of descending colon; K57.30 Diverticulosis of large intestine without perforation or abscess without bleeding; K64.8 Other hemorrhoids; I10 Essential (primary) hypertension; E78.00 Pure hypercholesterolemia, unspecified; Z79.899 Other long term (current) drug therapy; Z98.890 Other specified postprocedural states; Z87.891 Personal history of nicotine dependence
CPT/HCPCS: 45385; 45380; 88305; J2003; J2250; J2704

== ENCOUNTER 2024-10-03 14:52 | Outpatient (AMB) | payer MEDICARE, SELFPAY ==
--- NOTE | 2024-10-03 14:52 | MHC.PC.OV ---
Vital Signs 10/03/24 15:07 Height 5 ft 11 in Weight 298 lb BMI 41.6 BP 140/73 H Respiration 16 Pulse 60 Pulse Source Pulse Oximeter Temp 97.8 F Temp Source Temporal Artery Scan Pulse Oximetry (%) 97 Oxygen Delivery Method Room Air Intake Visit Reasons: physical - see comments Mechanical Facilities Technician Required: No Accompanied by: Self / Same As Patient Allergies aspirin Allergy (Severe, Verified 10/03/24 15:45) Angioedema ibuprofen Allergy (Severe, Verified 10/03/24 15:45) Angioedema Medication List - Last Reconciled 10/03/24 by Tian Morrell MD atorvastatin 40 mg PO DAILY metoprolol succinate ER 50 mg PO DAILY Tobacco use date assessed: 10/03/24 Fall risk assessment: 1 Fall in past year Last assessed Fall Risk: 10/03/24 Dental Screening Dental Screen Date: 10/03/24 Did you have a dental visit in the last 12 months?: No Did you have a dental problem in the last 6 months where you did not have access to dental care?: No HPI physical - see comments HPI Details 78-year-old male presents to the office requesting an annual physical. [facility] Medical History (Updated 10/03/24 @ 15:48 by Tian Morrell MD) Aortic stenosis Murmur Sleep apnea Arthritis Elevated cholesterol HTN (hypertension) Surgical History Hx of cataract extraction Hx of LASIK Hx of umbilical hernia repair H/O colonoscopy (~06/05/24) Family History Father Heart attack Colon cancer Mother Cancer Social History Housing: House Alcohol intake: current Alcohol intake frequency: a few times a week Patient Tobacco Use Status: Former Tobacco user service: No Current occupational status: employed Cognitive needs: No Hearing needs: No Vision needs: Yes (reading glasses) Questionnaire PHQ-9 Over the last 2 weeks, how often have you been bothered by any of the following problems? 1. Little interest or pleasure in doing things: not at all 2. Feeling down, depressed, or hopeless: not at all 3. Trouble falling or staying asleep, or sleeping too much: not at all 4. Feeling tired or having little energy: not at all 5. Poor appetite or overeating: not at all 6. Feeling bad about yourself - or that you are a failure or have let yourself or your family down: not at all 7. Trouble concentrating on things, such as reading the newspaper or watching television: not at all 8. Moving or speaking so slowly that other people could have noticed. Or the opposite - being so fidgety or restless that you have been moving around a lot more than usual: not at all 9. Thoughts that you would be better off or of hurting yourself in some way: not at all Total score: 0 Depression Screening Interpretation: Negative Depression Screening Done: Yes Source: Developed by Drs. Alejandro Arceo, Shantelle Clark, Lane Hawkins and colleagues, with an educational lavell from [employer]. Thrive Questionnaire Date Thrive assessed: 10/03/24 I am a: Patient What is your living situation today?: I have a steady place to live Within the past 12 months, did the food you bought not last and you didn't have the money to get more?: Never true Within the past 12 months, did you worry whether your food would run out before you got money to buy more?: Never true Do you have trouble paying for medicines?: No Do you have trouble getting transportation to medical appointments?: No Do you have trouble paying your heating and electricity bill?: No Do you have trouble taking care of your child, family member or friend?: No Do you have trouble with day-to-day activities such as bathing, preparing meals, shopping, managing finances, etc.?: No Are you currently unemployed and looking for a job?: No Are you interested in more education?: No Please select the resources that you would like help with: None Currently or been in a relationship where the following occur: No concerns reported THRIVE Score: 0 AUDIT C Alcohol Use Questionnaire (AUDIT-C) 1. How often do you have a drink containing alcohol?: 2-3 times a week 2. How many drinks containing alcohol do you have on a typical day when you are drinking?: 1 or 2 3. How often do you have six or more drinks on one occasion?: Never Total Score: 3 CELESTE-7 AMB Questionnaire CELESTE-7 Date CELESTE - 7 assessed: 10/03/24 Feeling nervous, anxious, or on edge: 0 = Not at all Not being able to stop or control worryin = Not at all Worrying too much about different things: 0 = Not at all Trouble relaxin = Not at all Being so restless that it is hard to sit still: 0 = Not at all Becoming easily annoyed or irritable: 0 = Not at all Feeling afraid as if something awful might happen: 0 = Not at all Total CELESTE-7 score (0-4 normal; 5-9 mild; 10-14 moderate; 15-21 severe): 0 Source: Developed by Drs. Alejandro Arceo, Shantelle Clark, Lane Hawkins and colleagues, with an educational lavell from [employer]. Physical exam (Primary Care) Vital Signs: Last Vital Signs Temp 97.8 F 10/03/24 15:07 Pulse 60 10/03/24 15:07 Resp 16 10/03/24 15:07 BP 140/73 H 10/03/24 15:07 Pulse Ox 97 10/03/24 15:07 Oxygen Delivery Method Room Air 10/03/24 15:07 Care Plan Goal for BP management: Blood pressure is in range. BMI result Body Mass Index 41.6 BMI Assessment/Plan discussion: High (1 lb per week weight loss suggested.) BMI High, discussed plan: lifestyle, weight reduction, dietary and physical activity Tobacco/Smoking Status: Tobacco use Status Tobacco use date assessed 10/03/24 10/03/24 14:56 Patient Tobacco Use Status Former Tobacco user 10/03/24 15:13 PHQ-9: PHQ-9 Score PHQ-9: Total score 0 10/03/24 14:56 Depression Screening Interpretation: Negative Thrive Assessment: Date of Thrive Assessment Date Thrive assessed 10/03/24 10/03/24 14:56 Currently or been in a relationship where the following occur: No concerns reported Const General: cooperative and healthy appearing Nutritional Appearance: well nourished Orientation/consciousness: patient oriented x3 Limitations: no limitations HENMT Head: Yes normal to inspection Eyes General: appearance normal, both eyes and all related structures Neck Neck: Yes normal visual inspection Chest Chest palpation & inspection: normal palpation of entire chest wall Resp Effort & Inspection: normal respiratory effort Neuro General: patient oriented x3 Coding Level of Care Code New Pt Prev Care >65yr (50126) Diagnoses Aortic stenosis I35.0 HTN (hypertension) I10 Annual physical exam Z00.00 Assessment & Plan Assessment & Plan (1) Aortic stenosis: Code(s): I35.0 - Nonrheumatic aortic (valve) stenosis Category: Medical Plan: Condition is stable. (2) HTN (hypertension): Code(s): I10 - Essential (primary) hypertension Category: Medical Plan: Blood pressure is in range. Continue current meds. (3) Annual physical exam: Code(s): Z00.00 - Encounter for general adult medical examination without abnormal findings Plan: As above. Orders: Orders Complete Blood Count no Diff Today E11.65 - Type 2 diabetes mellitus with hyperglycemia Microalbumin, Random (w Creat) Today E11.65 - Type 2 diabetes mellitus with hyperglycemia UA and rflx microscopic Today E11.65 - Type 2 diabetes mellitus with hyperglycemia Hemoglobin A1c Today E11.65 - Type 2 diabetes mellitus with hyperglycemia Basic Metabolic Panel Today E11.65 - Type 2 diabetes mellitus with hyperglycemia Lipid Panel Today E11.65 - Type 2 diabetes mellitus with hyperglycemia Liver Panel Today E11.65 - Type 2 diabetes mellitus with hyperglycemia Thyroid Stimulating Hormone Today E11.65 - Type 2 diabetes mellitus with hyperglycemia Medications: New atorvastatin 40 mg PO DAILY 90 tabs 1RF metoprolol succinate ER 50 mg PO DAILY 90 tabs 1RF
[2024-10-03 15:07] VITALS: BP 140/73; PULSE 60; RESP 16; TEMP 36.6; O2SAT 97; BMI 41.6
== END 2024-10-03 15:41 | disposition home or self-care (01) ==
LOC: HO.HMCSH 14:52
PROVIDERS: PCP Internal Medicine; Visit Provider Internal Medicine
DX: I35.0 Nonrheumatic aortic (valve) stenosis (principal); I10 Essential (primary) hypertension; Z00.00 Encounter for general adult medical examination without abnormal findings

== ENCOUNTER → 2024-10-03 14:52 | Outpatient (BNVA) | payer MEDICARE, SELFPAY | PROVIDERS: PCP Internal Medicine; Visit Provider Internal Medicine | DX: Z00.00 Encounter for general adult medical examination without abnormal findings (principal); E11.65 Type 2 diabetes mellitus with hyperglycemia; I10 Essential (primary) hypertension; I35.0 Nonrheumatic aortic (valve) stenosis | CPT/HCPCS: 96127; 99387 ==

== ENCOUNTER 2024-10-05 07:51 | Outpatient (REF) | payer MEDICARE, SELFPAY ==
[2024-10-05 10:18] LABS: Hemoglobin 13.9 g/dl (14.0-18.0); Mean Corpuscular HGB Conc 33.1 g/dl (31.0-36.0); Mean Corpuscular Hemoglobin 31.2 pg (27.0-33.0); Mean Corpuscular Volume 94.4 fL (80.0-98.0); Mean Platelet Volume 10.6 fL (9.4-12.4); Platelet Count 262 X10*3/uL (160-400); Red Blood Count 4.45 X10*6/uL (4.60-5.80); Red Cell Distribution Width 12.9 % (11.0-16.0); White Blood Count 7.7 X10*3/uL (4.8-10.8)
[2024-10-05 10:37] LABS: Estimated Average Glucose 131 mg/dL; Hemoglobin A1C 159.6195 umol/L; Hemoglobin A1c % 6.2 % (<6.0); Total Hemoglobin (HGBA1C) 3612.3534 umol/L
[2024-10-05 10:43] LABS: Alanine Aminotransferase 27 U/L (0-40); Alkaline Phosphatase 51 U/L (39-117); Anion Gap 14 (12-20); Aspartate Amino Transferase 22 U/L (5-37); Bilirubin Direct 0.3 mg/dL (0.0-0.5); Bilirubin Total 0.9 mg/dL (0.0-1.0); Blood Urea Nitrogen 17 mg/dL (9-16); Carbon Dioxide 27 mmol/L (22-29); Chloride 104 mmol/L (96-108); Cholesterol 141 mg/dL (<200); Estimated Glomerular Filt Rate > 60; Glucose Random 123 mg/dL (60-115); HDL Cholesterol 34 mg/dL (>40); LDL Cholesterol Calculated 83 mg/dL (<100); Potassium 4.5 mmol/L (3.3-5.1); Sodium 140 mmol/L (135-145); Total Protein 6.8 g/dL (6.5-8.0); Triglycerides 123 mg/dL (<150)
[2024-10-05 11:07] LABS: Thyroid Stimulating Hormone 2.54 uIU/mL (0.32-4.0)
[2024-10-05 16:30] LABS: Appearance Urine Clear; Color Urine Dark Yellow; Glucose Urine UA Negative (Negative); Leukocyte Esterase Urine Negative (Negative); Nitrite Urine Negative (Negative); PH 5.5 (5.0-9.0); Specific Gravity - Urine >= 1.030 (1.005-1.025); Urine Blood Negative (Negative); Urine Ketones Trace mg/dL (Negative); Urine Protein Negative (Neg-Trace)
[2024-10-05 16:52] LABS: Creatinine Urine 264.06 mg/dL; Microalbum/Creatinine Ratio Ur 6.4 ug/mg cr (<30)
== END 2024-10-05 07:52 | disposition home or self-care (01) ==
LOC: HO.HMGCLDS 07:51
PROVIDERS: PCP Internal Medicine; Visit Provider Internal Medicine
DX: E11.65 Type 2 diabetes mellitus with hyperglycemia (principal)
CPT/HCPCS: 36415; 80048; 80061; 80076; 81003; 82043; 82570; 83036; 84443; 85027

== ENCOUNTER 2025-04-03 15:06 | Outpatient (AMB) | payer MEDICARE, SELFPAY ==
--- OUTSIDE RECORDS SUMMARY | 2024-06-05 06:50 | XMS_ITS ---
Author Organization [facility] Address [address] [place] [phone] Care Team Providers Care Forklift Truck Operator Name Role Phone Toyin (RETIRED) Justino SHAY Primary Care Provider Unavailable Alejandro Glass Unavailable [phone] REASON FOR VISIT colon screening Problems Problem Type SNOMED Code ICD Code Onset Dates Problem Status W/U Status Risk Notes Problem Diverticular disease of colon (671770787) Diverticulosis of large intestine without perforation or abscess without bleeding (K57.30) Active confirmed Encounters Encounter Location Date Provider Diagnosis [facility] Outpatient [address] [place] [phone] 06/05/2024 Alejandro Glass Colon cancer scree imelda Z12.11 ; Colon polyps K63.5 ; Family history of colon cancer Z80.0 ; Diverticulosis of large intestine without perforation or abscess without bleeding K57.30 and Other hemorrhoids K64.8 Assessments Encounter Date Diagnosis (ICD Code) Assessment Notes Treatment Notes Treatment Clinical Notes Section Notes 06/05/2024 Colon cancer screening (ICD-10 - Z12.11) 06/05/2024 Colon polyps (ICD-10 - K63.5) 06/05/2024 Family history of colon cancer (ICD-10 - Z80.0) 06/05/2024 Diverticulosis of large intestine without perforation or abscess without bleeding (ICD-10 - K57.30) 06/05/2024 Other hemorrhoids (ICD-10 - K64.8) Plan Of Treatment No Information Progress Notes * JUSTINO CELISDOB:1945 (79 yo M)Acc No.[id number]:06/05/2024 COLON WITH MAC Patient: JUSTINO CARMONA Provider: Edgar Glass MD :1945 A ge:78 Y S ex:Male Date:06/05/2024 Address:[address] [place] [address] Nedra jean-b[facility]iste [id number] Pcp:Justino Deal (RETIRED) MD Subjective: * Chief Complaints: * 1 . Colon screening. * Medical History: Objective: * Vitals: Assessment: * Assessment: 1. C olon cancer screening - Z12.11 (Primary) 2 . C olon polyps - K63.5? 3. F amily history of colon cancer - Z80.0 4 . D iverticulosis of large intestine without perforation or abscess without bleeding - K57.30 5 . Other hemorrhoids - K64.8 Plan: * Treatment: * Procedure Codes: 4 5385 LESION REMOVAL COLONOSCOPY, Modifiers: [place] , [address] COLONOSCOPY AND BIOPSY, Modifiers: 59 , PT, 0529F INTRVL 3+YRS PTS CLNSCP DOCD, 0528F RCMND FLW-UP 10 YRS DOCD, Modifiers: 1P * * The named appointment provid er may or may not be the originator of this progress note, and it is not deemed complete until electronically signed by the appointment provider. Sign off status: Pending * Provider: Edgar Glass MD Date: Generated for Carroll monteiro/Leeroy/Marlaitting on: 07:31 PM EDT
--- NOTE | 2025-04-03 15:17 | A.OFFPC_ITS ---
Vital Signs 04/03/25 15:18 Height 5 ft 11 in Weight 296 lb BMI 41.3 BP 145/70 H Blood Pressure Location Rt brachial Position Sitting Respiration 16 Pulse 55 Pulse Source Pulse Oximeter Temp 97.6 F Temp Source Temporal Artery Scan Pulse Oximetry (%) 96 Oxygen Delivery Method Room Air Intake Visit Reasons: 6 month follow up Insulation Inspector Required: No Accompanied by: Self / Same As Patient Allergies aspirin Allergy (Severe, Verified 04/03/25 15:18) Angioedema ibuprofen Allergy (Severe, Verified 04/03/25 15:18) Angioedema Tobacco use date assessed: 10/03/24 Dental Screening Dental Screen Date: 10/03/24 [facility] Medical History Aortic stenosis Murmur Sleep apnea Arthritis Elevated cholesterol HTN (hypertension) Surgical History Hx of cataract extraction Hx of LASIK Hx of umbilical hernia repair H/O colonoscopy (~06/05/24) Family History Father Heart attack Colon cancer Mother Cancer Social History Housing: House Alcohol intake: current Alcohol intake frequency: a few times a week Patient Tobacco Use Status: Former Tobacco user service: Yes Current occupational status: employed Cognitive needs: No Hearing needs: Yes (left ear hearing aid ) Vision needs: Yes (reading glasses) Questionnaire PHQ-9 Over the last 2 weeks, how often have you been bothered by any of the following problems? 1. Little interest or pleasure in doing things: not at all 2. Feeling down, depressed, or hopeless: not at all 3. Trouble falling or staying asleep, or sleeping too much: not at all 4. Feeling tired or having little energy: not at all 5. Poor appetite or overeating: not at all 6. Feeling bad about yourself - or that you are a failure or have let yourself or your family down: not at all 7. Trouble concentrating on things, such as reading the newspaper or watching television: not at all 8. Moving or speaking so slowly that other people could have noticed. Or the opposite - being so fidgety or restless that you have been moving around a lot more than usual: not at all 9. Thoughts that you would be better off or of hurting yourself in some way: not at all Total score: 0 Depression Screening Interpretation: Negative Depression Screening Done: Yes Source: Developed by Drs. Alejandro Arceo, Shantelle Clark, Lane Hawkins and colleagues, with an educational lavell from [employer]. Thrive Questionnaire Date Thrive assessed: 10/03/24 I am a: Patient What is your living situation today?: I have a steady place to live Within the past 12 months, did the food you bought not last and you didn't have the money to get more?: Never true Within the past 12 months, did you worry whether your food would run out before you got money to buy more?: Never true Do you have trouble paying for medicines?: No Do you have trouble getting transportation to medical appointments?: No Do you have trouble paying your heating and electricity bill?: No Do you have trouble taking care of your child, family member or friend?: No Do you have trouble with day-to-day activities such as bathing, preparing meals, shopping, managing finances, etc.?: No Are you currently unemployed and looking for a job?: No Are you interested in more education?: No Please select the resources that you would like help with: None Currently or been in a relationship where the following occur: No concerns reported THRIVE Score: 0 AUDIT C Alcohol Use Questionnaire (AUDIT-C) 1. How often do you have a drink containing alcohol?: 2-3 times a week 2. How many drinks containing alcohol do you have on a typical day when you are drinking?: 1 or 2 3. How often do you have six or more drinks on one occasion?: Never Total Score: 3 CELESTE-7 AMB Questionnaire CELESTE-7 Date CELESTE - 7 assessed: 10/03/24 Feeling nervous, anxious, or on edge: 0 = Not at all Not being able to stop or control worryin = Not at all Worrying too much about different things: 0 = Not at all Trouble relaxin = Not at all Being so restless that it is hard to sit still: 0 = Not at all Becoming easily annoyed or irritable: 0 = Not at all Feeling afraid as if something awful might happen: 0 = Not at all Total CELESTE-7 score (0-4 normal; 5-9 mild; 10-14 moderate; 15-21 severe): 0 Source: Developed by Drs. Alejandro Arceo, Shantelle Clark, Lane Hawkins and colleagues, with an educational lavell from [employer]. Physical exam (Primary Care) Vital Signs: Last Vital Signs Temp 97.6 F 04/03/25 15:18 Pulse 55 04/03/25 15:18 Resp 16 04/03/25 15:18 BP 145/70 H 04/03/25 15:18 Pulse Ox 96 04/03/25 15:18 Oxygen Delivery Method Room Air 04/03/25 15:18 BMI result Body Mass Index 41.3 Tobacco/Smoking Status: Tobacco use Status Tobacco use date assessed 10/03/24 04/03/25 15:22 Patient Tobacco Use Status Former Tobacco user 04/03/25 15:22 PHQ-9: PHQ-9 Score PHQ-9: Total score 0 04/03/25 15:22 Depression Screening Interpretation: Negative Thrive Assessment: Date of Thrive Assessment Date Thrive assessed 10/03/24 04/03/25 15:22 Currently or been in a relationship where the following occur: No concerns reported Office Procedures Flu Questionnaire Does the patient have a severe egg allergy?: No Does the patient have severe life threatening allergies?: No Does the patient have a fever or illness today?: No Has the patient ever had Guillain-[place] Syndrome?: No Has the patient ever had any past reaction to a flu shot?: No Immunizations Fluarix [id number] (PF) 45 mcg (15 mcg x 3)/0.5 mL IM syringe Performing Provider: Tian Morrell MD [facility] Documented (not given) by: SUNDEEP Burgess on 04/03/25 15:23 Reason Not Given: Patient Refused Coding Assessment & Plan Assessment & Plan Orders: Orders Influenza [id number] Immunization Today Z23 - Encounter for immunization
[2025-04-03 15:18] VITALS: BP 145/70; PULSE 55; RESP 16; TEMP 36.4; O2SAT 96; BMI 41.3
--- OUTSIDE RECORDS SUMMARY | 2025-04-03 19:32 | XMS_ITS | Patient Health Record ---
Author Organization [facility] Address [address] [place] [address] Care Team Providers Care Editing Computer Publisher Name Role Phone Toyin (RETIRED) Justino SHAY Primary Care Provider Unavailable Alejandro Glass Unavailable [phone] Allergies Allergen (clinical drug ingredient) Drug/Non Drug Allergy documented on EMR Reaction Allergy Type Onset Date Status ibuprofen Ibuprofen swollen face/possible seizure Drug Allergy Active aspirin Aspirin Unknown Drug Allergy Active Results Component Value Reference Range Notes Pathology (Not yet reviewed by provider) Interpretation: Performing Lab:[facility], [address] [place] [id number] Notes/Report: Reason For Referral No Information Medications Medication SIG (Take, Route, Frequency, Duration) Notes Start Date End Date Status Metoprolol Succinate ER 50 MG 1 tablet Orally Once a day Active Atorvastatin Calcium 40 MG 1 tablet Oral ly Once a day Active Social History Tobacco Use: Social History Observation Description Date Details (start date - stop date) Former Smoker NA - NA Tobacco Use/Smoking Question Answer Notes Patient is [...] drinks (1 point) Points 4 Interpretation Positive Section Notes: Nonsmoker--quit in 1988; occ asional alcohol Nonsmoker--quit in 1988; occ asional alcohol Problems Problem Type SNOMED Code ICD Code Onset Dates Problem Status W/U Status Risk Notes Problem Screening for malignant neoplasm of colon (834476706) Encounter for screening for malignant neoplasm of colon (Z12.11) Active confirmed Problem History of adenomatous polyp of colon (037179729) History of adenomatous polyp of colon (Z86.010) Active confirmed Problem Diverticular disease of colon (585629521) Diverticulosis of large intestine without perforation or abscess without bleeding (K57.30) Active confirmed Problem Preprocedural examination (354031349251945) Preprocedural examination (Z01.818) Active confirmed Problem Family History of Cancer of Colon (Situation) (612754044) Family history of colon cancer (Z80.0) Active confirmed Encounters Encounter Location Date Provider Diagnosis [facility] [place] [facility] [address] [place] [phone] 06/05/2024 Alejandro Glass Colon cancer scree imelda [...] hemorrhoids (ICD-10 - K64.8) Plan Of Treatment Pending Test Test Name Order Date Pathology 06/05/2024 Future Test Test Name Order Date COLONOSCOPY 10/15/2016 COLONOSCOPY 02/11/2024 Insurance Providers Payer Name Payer Address Payer Phone Subscriber Number Group Number Insured Name Patient Relationship to Insured Coverage Start Date Coverage End Date [facility] [address] [place] [phone] [id number] JUSTINO CELIS Self - patient is the insured Medical (General) History Medical History History ICD Code Hypertension Elevated Cholesterol Denies SC,DM,CVA,Lung disease,renal dise ase Told of probable sleep apnea Negative screening colonoscopy in October of [address] Camarillo Arthritis knee shoulder Colonoscopy in 12/2016 with tubular adeno mas removed Surgical History Surgery Date(Month/Year) Umbilical hernia with mesh Dr Donis 2009 Hernia repair---mesh was removed Dr. Wes braswell Lasik both eyes, and cataracts 04/2015
--- OUTSIDE RECORDS SUMMARY | 2025-04-03 19:32 | XMS_ITS | Patient Health Record ---
[facility] Address [address] [facility] [place] [address] Care Team Providers Care Steamship Agent Name Role Phone Justino Deal MD Primary Care Provider Unavailab megan Hortongeorge Lea Unavailable [phone] Reason For Referral No Information Medications Medication SIG (Take, Route, Frequency, Duration) Notes Start Date End Date Status Physical Therapy . . . 2-3x/week; Durat ion: 3-4 weeks 11/22/2018 Active Ibuprofen 800 MG 1 tablet Orally Thre e times a day; Duration: 30 day(s) 11/22/2018 Active Metoprolol Succinate ER 50 MG Orally Active Atorvastatin Calcium 10 MG Orally Active Social History Tobacco Use: Social History Observation Description Date Details (start date - stop date) Former Smoker NA - NA Tobacco Use/Smoking Question Answer Notes Are you a: former smoker Additional Findings: Tobacco Non-User Current no n-smoker Alcohol Screen Question Answer Notes Did you have a drink contain ing alcohol in the past year? Yes How often did you have a dri nk containing alcohol in the past year? 2 to 4 times a month (2 points) Points 2 Interpretation Negative Tobacco use other than smoking: Question Answer Notes Are you an other tobacco user? No Plan Of Treatment Pending Test Test Name Order Date X ray : Foot, right 3V 10/11/2018 Insurance Providers Payer Name Payer Address Payer Phone Subscriber Number Group Number Insured Name Patient Relationship to Insured Coverage Start Date Coverage End Date [employer] [address] [place] [address] [phone] [id number] Justino Grant Self - patient is the insured Medical (General) History Medical History History ICD Code Cholesterol Measles Hypertension Surgical History Surgery Date(Month/Year) Hernia Repair 2012
== END 2025-04-03 15:32 | disposition home or self-care (01) ==
LOC: HO.HMCSH 15:06
PROVIDERS: PCP Internal Medicine; Visit Provider Internal Medicine
DX: Z23 Encounter for immunization (principal)

== ENCOUNTER → 2025-04-03 15:06 | Outpatient (BNVA) | payer MEDICARE, SELFPAY | PROVIDERS: PCP Internal Medicine; Visit Provider Internal Medicine | DX: I10 Essential (primary) hypertension (principal); Z28.21 Immunization not carried out because of patient refusal | CPT/HCPCS: 90471; 96127; 99212 ==